=== PATIENT | female | born 2000 | race Caucasian/White ===

== ENCOUNTER 2018-05-22 19:55 | Emergency (ER) | payer OTHER ==
[2018-05-22 20:00] VITALS: BP 138/97
--- NOTE | 2018-05-22 20:08 | EDPHY ---
H & P Time Seen by Provider: 05/22/18 20:04 HPI/ROS: CHIEF COMPLAINT: Sore throat and rash HISTORY OF PRESENT ILLNESS: Patient is 17-year-old female here with boyfriend complaining of sore throat and rash to her upper and lower extremities. She states this started with sore throat and 2 3 days ago. She has not had a fever. She does report dry cough and sore throat body aches starting at the same time. She has no sick contacts and no known exposure to strep. She then developed sores on her hands and noticed sores to her bilateral lower extremities. She is not immune compromised. She takes no prescribed medication. She is not . ROS As detailed in HPI Smoking Status: Never smoked Physical Exam: General: Alert and oriented. Nontoxic appearing. No acute distress HEENT: Pupils PERRLA. Previous acutely lesions to the posterior pharynx. Tonsils 1+ bilateral with no exudate. Uvula midline. Cardiopulmonary: Regular rate and rhythm. No lower extremity edema Skin: [place] warm and dry. Multiple nonblanching erythematous papular lesions to the palms and with extensor aspect of the hands. Additionally she has similar lesions to the lower aspect of bilateral legs and soles of feet. Muscle skeletal: Moving all 4 extremities. Equal strength in upper extremities and lower extremities. Ambulatory. Constitutional: Initial Vital Signs Temperature (C) 36.7 C 05/22/18 19:58 Heart Rate 88 05/22/18 19:58 Respiratory Rate 18 05/22/18 19:58 Blood Pressure 138/97 H 05/22/18 19:58 O2 Sat (%) 99 05/22/18 19:58 O2 Delivery Mode Room Air Allergies/Adverse Reactions: No Known Allergies Allergy (Unverified 05/22/18 19:58) Home Medications: Medication Instructions Recorded NK [No Known Home Meds] 05/22/18 Medical Decision Making ED Course/Re-evaluation: History and physical are most consistent with [id number] disease. There is no evidence of peritonsillar abscess, retropharyngeal abscess, airway obstruction, strep pharyngitis. Patient is afebrile nontoxic-appearing and without any drooling. She is given Decadron for her sore throat and discharged home in stable condition. - Data Points Medications Given: Discontinued Medications Dexamethasone (Decadron) 8 mg PO EDNOW ONE Stop: 05/22/18 20:15 Last Admin: 05/22/18 20:19 Dose: 8 mg Departure - Departure Disposition: Home, Routine, Self-Care Clinical Impression: Hand, foot and mouth disease Condition: Good Instructions: Hand, Foot, and Mouth Disease (ED) Referrals: Patient,NotPresent [Unknown] - As per Instructions [facility],. [Clinic] - As per Instructions
[2018-05-22] MEDS ORDERED: DEXAMETHASONE 4 MG TAB PO ONE (20:14)
== END 2018-05-22 20:28 | disposition home or self-care (01) ==
DX: B08.4 Enteroviral vesicular stomatitis with exanthem (principal)

== ENCOUNTER → 2018-10-05 | Outpatient (CLI) | payer OTHER | LOC: BMCIMAGING 11:25 | PROVIDERS: ATTEND Family Medicine | DX: R10.31 Right lower quadrant pain (principal) ==